=== PATIENT | female | born 1985 | race Hispanic/Latino ===

== ENCOUNTER 2018-01-30 06:49 | Emergency (ER) | payer SELFPAY ==
[2018-01-30] MEDS ORDERED: Fentanyl 100 MCG/2 ML VIAL ONE (07:20)
[2018-01-30] MEDS ORDERED: Ketorolac Tromethamine 30 MG/ML VIAL ONE (07:20)
[2018-01-30 07:23] LABS: #Basophils 0.1 thou/uL (0.0-0.2); #Eosinphils 0.1 thou/uL (0.0-0.7); #Lymphocytes 1.7 thou/uL (1.20-3.40); #Monocytes 0.5 thou/uL (0.11-0.59); #Neutrophils 6.5 thou/uL (1.40-6.50); %Basophils 1.1 % (0.0-1.0); %Eosinophils 1.3 % (0.0-10.0); %Lymphocytes 19.5 % (21.0-51.0); %Neutrophils 72.2 % (42.0-75.0); Mean Corpuscular HGB CONC 35.1 g/dL (32.0-36.0); Mean Corpuscular Hemoglobin 27.1 pg (27.0-31.0); Mean Corpuscular Volume 77.2 fL (78.0-98.0); Mean Platelet Volume 8.7 fL (7.4-10.4); Platelet Count 253 thou/uL (130-400); RBC Distribution Width 12.3 % (11.5-14.5); Red Blood Cell (RBC) Count 4.43 mill/uL (4.20-5.40); White Blood Cell (WBC) Count 8.9 thou/uL (4.8-10.8)
[2018-01-30 07:35] LABS: Anion Gap 13 mmol/L (10-20); BUN (Urea Nitrogen) 11 mg/dL (7.0-18.7); Calc. Creatinine Clearance 0 mL/min (70-130); Calcium 9.5 mg/dL (7.8-10.44); Carbon Dioxide 25 mmol/L (22-29); Chloride 109 mmol/L (98-107); Estimated GFR-MDRD 88; Glucose 124 mg/dL (70-105); Sodium 143 mmol/L (136-145)
[2018-01-30 07:51] LABS: BHCG - Serum Negative (NEGATIVE); Pregs Control Background? CLEAR/WHITE (CLR/WHITE); Pregs Control Bar Appear? YES (CONTROL BAR)
[2018-01-30 08:32] LABS: Bilirubin Negative (Negative); Blood, Urine Moderate (Negative); Clarity Slightly Cloudy (Clear); Glucose, Urine (Dipstick) Negative (Negative); Leukocyte Negative (Negative); Nitrite Negative (Negative); Protein, Urine (Dipstick) Trace mg/dL (Neg-Trace); Urobilinogen 0.2 mg/dL (0.2-1.0); pH, Urine 6.5 (5.0-9.0)
[2018-01-30 08:33] LABS: Bacteria/HPF 1+ HPF (None Seen); Other Microscopic Description LARGE MUCOUS STRANDS; Squamous Epithelial 0-3 HPF (0-3)
[2018-01-30] MEDS ORDERED: Sulfameth/Trimethoprim DS 800-160mg TAB ONE (08:41)
--- NOTE | 2018-01-30 09:13 | CT ---
CT ABDOMEN AND PELVIS WITHOUT CONTRAST: 01/30/2018 HISTORY: TECHNIQUE: A spiral CT of the abdomen and pelvis is done without oral or IV contrast. There are no prior scans available for comparison. FINDINGS: The lung bases are clear. No space occupying disease is seen in the liver or spleen, though the hepa tic size may be upper normal. No gallstones are detected. There may be a subcentimeter nodule in th e left adrenal gland, but the finding is indefinite and, given the size, would not be a current ellie rn. The major finding on the study is bilateral renal calculi. There is mild right hydronephrosis and hy droureter. I am hard pressed to find a ureteral calculus or calculus in the bladder. There is a rob cification in the right flank on scan 66, but I believe it is in a vessel and not in the ureter. The findings suggest the possibility of a recently passed stone. CT of the pelvis shows no pelvic masses, fluid collections, or inflammatory changes. There may be so me cystic changes in each adnexa, but the findings are symmetrical and would be better assessed via u ltrasound. IMPRESSION: Bilateral nonobstructing renal calculi. Mild right hydronephrosis and hydroureter, suggesting a rece ntly passed stone on the right side. POS: HOME
== END 2018-01-30 08:45 | disposition home or self-care (01) ==
LOC: BURERS 06:49
DX: N13.2 Hydronephrosis with renal and ureteral calculous obstruction (principal); N30.01 Acute cystitis with hematuria
CPT/HCPCS: 74176; 80048; 81003; 81015; 84703; 85025; 96361; 96372; 96374; 96375; J1885; J3010

== ENCOUNTER 2020-10-11 15:59 | Emergency (ER) | payer SELFPAY ==
[2020-10-11 16:17] LABS: Bilirubin Negative (Negative); Blood, Urine Negative (Negative); Clarity Clear (Clear); Glucose, Urine (Dipstick) Negative (Negative); Ketone, Urine Negative (Negative); Leukocyte Negative (Negative); Nitrite Negative (Negative); Protein, Urine (Dipstick) Negative (Neg-Trace); Specific Gravity, Urine 1.015 (1.005-1.030); Urobilinogen 0.2 mg/dL (Less than 2); pH, Urine 7.5 (5.0-9.0)
[2020-10-11] MEDS ORDERED: Ketorolac Tromethamine 30 MG/ML VIAL ONE (16:37)
[2020-10-11 16:38] LABS: Pregnancy Test - Urine (BHCG) Negative (Negative); Pregu Control Background? CLEAR/WHITE (CLR/WHITE); Pregu Control Bar Appear? YES (CONTROL BAR); Specific Gravity 1.015 (1.002-1.036)
== END 2020-10-11 18:18 | disposition home or self-care (01) ==
LOC: BURERS 15:59
DX: N13.2 Hydronephrosis with renal and ureteral calculous obstruction (principal)
CPT/HCPCS: 74176; 81003; 81025; 96374; J1885